=== PATIENT | male | born 1990 | race Caucasian/White ===

== ENCOUNTER 2016-12-17 20:17 | Emergency (ER) | payer OTHER ==
[2016-12-17] MEDS ORDERED: CEPHALEXIN 500 MG CAPSULE ONE (23:30)
== END 2016-12-17 23:48 | disposition home or self-care (01) ==
LOC: ED 20:17
DX: L02.31 Cutaneous abscess of buttock (principal); J45.909 Unspecified asthma, uncomplicated; F17.210 Nicotine dependence, cigarettes, uncomplicated
CPT/HCPCS: 99283 ×2; 10061 ×2; A9270